=== PATIENT | male | born 1970 ===

== ENCOUNTER 2021-08-01 04:02 | Inpatient (IN) ==
[2021-08-01] MEDS ORDERED: ACETAMINOPHEN 325 MG TABLET PO PRN (06:46)
[2021-08-01] MEDS ORDERED: hydrALAZINE 20 MG/1 ML VIAL IV PRN (06:46)
[2021-08-01] MEDS ORDERED: GLUCAGON 1 MG VIAL IM PRN (06:46)
[2021-08-01] MEDS ORDERED: ONDANSETRON 4 MG/2 ML VIAL IV PRN (06:46)
[2021-08-01] MEDS ORDERED: DEXTROSE 10% 25 GM/250 ML BAG IV PRN (06:46)
[2021-08-01 07:27] LABS: Basophils % 0.2 % (0.0-0.8); Eosinophils # 0.1 10*3/uL (0.0-0.87); Hemoglobin 8.4 GM/DL (14.0-18.0); Immature Granulocytes % 0.6 %; Immature Granulocytes Absolute 0.03 #; Lymphocytes % 18.8 % (21.2-54.2); Mean Corpuscular HGB Conc 32.3 GM/DL (32-36); Mean Corpuscular Volume 95.9 FL (87-102); Mean Platelet Volume 9.2 FL (9.6-12.0); Monocytes % 4.5 % (1.7-12.7); Neutrophils % 73.9 % (38.7-73.9); Platelet Count 267 T/CUMM (130-400); Red Blood Count 2.71 MC/CUMM (3.8-5.5); Red Cell Distribution Width 12.8 % (9.3-17.3); White Blood Count 5.4 T/CUMM (4-12)
[2021-08-01 07:55] LABS: Alanine Aminotransferase 30 U/L (16-61); Albumin 1.1 G/DL (3.4-5.0); Alkaline Phosphatase 118 U/L (45-117); Aspartate Amino Transferase 22 U/L (0-37); Bilirubin,Total < 0.39 MG/DL (0.20-1.00); Blood Urea Nitrogen 38 MG/DL (7-18); Calcium 7.2 MG/DL (8.5-10.1); Carbon Dioxide 19 MMOL/L (21-32); Estimated Glom Filtration Rate 15 ML/MIN; Glucose 100 MG/DL (74-106); HDL Cholesterol 37 MG/DL (40-60); Osmolality,Calculated 307.9 MOS/KG (273-304); Potassium 4.9 MMOL/L (3.5-5.1); Risk Ratio 3.57; Sodium 151 MMOL/L (136-145); Total Protein 4.5 G/DL (6.4-8.2); Triglycerides 126 MG/DL (2-150); VLDL Cholesterol 25.2 MG/DL
[2021-08-01] MEDS: INSULIN REGULAR 100 UNIT/ML SUBCUT SCH ×4 (07:58→22:38)
[2021-08-01] MEDS: PANTOPRAZOLE 40 MG TABLET PO SCH (09:00)
[2021-08-01] MEDS: CHOLECALCIFEROL 1,000 UNIT TABLET PO SCH (10:54)
[2021-08-01] MEDS: AZITHROMYCIN 250 MG TABLET PO SCH (10:54)
[2021-08-01] MEDS: cefTRIAXone 1,000 MG in SODIUM CHLORIDE 0.9% 100 ML IV SCH (10:55)
[2021-08-01] MEDS ORDERED: MAGNESIUM SULF INJ 3 GM in SODIUM CHLORIDE 0.9% 100 ML IV ONE (11:00)
[2021-08-01 11:27] LABS: Folate 6.74 NG/ML (5.38-24.0)
[2021-08-01 11:33] LABS: % Iron Saturation 37.7 % (18-50); Ferritin 463.3 ng/mL (26-388)
[2021-08-01] MEDS: SODIUM BICARB INJ 150 MEQ in DEXTROSE 5% 850 ML IV SCH ×2 (12:38→18:13)
[2021-08-01 13:32] LABS: Bilirubin,Urine Negative (Negative); Blood, Urine Small mg/dL (Negative); Glucose,Urine (UA) >=500 mg/dL (Negative); Hyaline Casts,Urine 11 /LPF (0-3); Ketones,Urine Negative (Negative); Mucus,Urine Occasional /LPF (Occasional); Nitrite,Urine Negative (Negative); Protein,Urine >=500 MG/DL; RBC,Urine 2 /HPF (0-4); Urine Appearance CLEAR (Clear); Urine Color Yellow (Yellow); Urine Specific Gravity 1.013 (1.001-1.035); Urine Urobilinogen < 2.0 EU/DL (<2.0)
[2021-08-01] MEDS: FERROUS SULFATE 325 MG TABLET PO SCH ×2 (16:29→21:45)
[2021-08-01] MEDS: HEPARIN 5,000 UNIT/1 ML VIAL SUBCUT SCH (21:45)
[2021-08-01] MEDS: METOPROLOL TARTRATE 50 MG TABLET PO SCH (21:45)
[2021-08-02] MEDS: SODIUM BICARB INJ 150 MEQ in DEXTROSE 5% 850 ML IV SCH ×3 (01:06→18:04)
[2021-08-02 05:45] LABS: Basophils % 0.2 % (0.0-0.8); Eosinophils # 0.1 10*3/uL (0.0-0.87); Eosinophils % 2.6 % (0.00-10.9); Hematocrit 25.9 VOL% (42.0-52.0); Hemoglobin 8.4 GM/DL (14.0-18.0); Immature Granulocytes % 0.5 %; Immature Granulocytes Absolute 0.02 #; Lymphocytes # 1.1 10*3/uL (1.4-4.0); Lymphocytes % 25.5 % (21.2-54.2); Mean Corpuscular HGB Conc 32.4 GM/DL (32-36); Mean Corpuscular Volume 94.5 FL (87-102); Mean Platelet Volume 9.2 FL (9.6-12.0); Monocytes % 5.9 % (1.7-12.7); Neutrophils % 65.3 % (38.7-73.9); Platelet Count 277 T/CUMM (130-400); Red Blood Count 2.74 MC/CUMM (3.8-5.5); Red Cell Distribution Width 12.7 % (9.3-17.3); White Blood Count 4.3 T/CUMM (4-12)
[2021-08-02 05:59] LABS: Osmolality,Calculated 303.3 MOS/KG (273-304); Potassium 4.3 MMOL/L (3.5-5.1)
[2021-08-02] MEDS: HEPARIN 5,000 UNIT/1 ML VIAL SUBCUT SCH ×2 (09:02→20:45)
[2021-08-02] MEDS: CLOPIDOGREL 75 MG TABLET PO SCH (09:05)
[2021-08-02] MEDS: CHOLECALCIFEROL 1,000 UNIT TABLET PO SCH (09:05)
[2021-08-02] MEDS: ATORVASTATIN 80 MG TABLET PO SCH (09:05)
[2021-08-02] MEDS: ASPIRIN CHEW 81 MG TABLET PO SCH (09:05)
[2021-08-02] MEDS: PANTOPRAZOLE 40 MG TABLET PO SCH (09:05)
[2021-08-02] MEDS: TAMSULOSIN 0.4 MG CAPSULE PO SCH (09:05)
[2021-08-02] MEDS: FERROUS SULFATE 325 MG TABLET PO SCH ×3 (09:05→20:43)
[2021-08-02] MEDS: AZITHROMYCIN 250 MG TABLET PO SCH (09:06)
[2021-08-02] MEDS: METOPROLOL TARTRATE 50 MG TABLET PO SCH ×2 (09:12→20:43)
[2021-08-02] MEDS: amLODIPine 10 MG TABLET PO SCH (09:12)
[2021-08-02] MEDS: INSULIN REGULAR 100 UNIT/ML SUBCUT SCH ×4 (09:48→20:44)
[2021-08-02] MEDS: cefTRIAXone 1,000 MG in SODIUM CHLORIDE 0.9% 100 ML IV SCH (12:14)
[2021-08-03] MEDS: SODIUM BICARB INJ 150 MEQ in DEXTROSE 5% 850 ML IV SCH ×2 (01:46→09:01)
[2021-08-03 07:31] LABS: Alanine Aminotransferase 25 U/L (16-61); Alkaline Phosphatase 101 U/L (45-117); Aspartate Amino Transferase 25 U/L (0-37); Bilirubin,Total < 0.39 MG/DL (0.20-1.00); Blood Urea Nitrogen 32 MG/DL (7-18); Calcium 6.5 MG/DL (8.5-10.1); Carbon Dioxide 28 MMOL/L (21-32); Estimated Glom Filtration Rate 17 ML/MIN; Glucose 124 MG/DL (74-106); Osmolality,Calculated 301.3 MOS/KG (273-304); Potassium 3.8 MMOL/L (3.5-5.1); Sodium 148 MMOL/L (136-145); Total Protein 4.2 G/DL (6.4-8.2)
[2021-08-03] MEDS: CHOLECALCIFEROL 1,000 UNIT TABLET PO SCH (09:00)
[2021-08-03] MEDS: FERROUS SULFATE 325 MG TABLET PO SCH ×3 (09:00→22:09)
[2021-08-03] MEDS: HEPARIN 5,000 UNIT/1 ML VIAL SUBCUT SCH ×2 (09:00→22:09)
[2021-08-03] MEDS: TAMSULOSIN 0.4 MG CAPSULE PO SCH (09:00)
[2021-08-03] MEDS: AZITHROMYCIN 250 MG TABLET PO SCH (09:00)
[2021-08-03] MEDS: ATORVASTATIN 80 MG TABLET PO SCH (09:00)
[2021-08-03] MEDS: ASPIRIN CHEW 81 MG TABLET PO SCH (09:00)
[2021-08-03] MEDS: amLODIPine 10 MG TABLET PO SCH (09:01)
[2021-08-03] MEDS: METOPROLOL TARTRATE 50 MG TABLET PO SCH ×2 (09:01→22:09)
[2021-08-03] MEDS: CLOPIDOGREL 75 MG TABLET PO SCH (09:01)
[2021-08-03] MEDS: PANTOPRAZOLE 40 MG TABLET PO SCH (09:01)
[2021-08-03] MEDS: INSULIN REGULAR 100 UNIT/ML SUBCUT SCH ×4 (09:57→22:19)
[2021-08-03] MEDS: cefTRIAXone 1,000 MG in SODIUM CHLORIDE 0.9% 100 ML IV SCH (12:10)
[2021-08-03] MEDS: SODIUM BICARB INJ 150 MEQ in DEXTROSE 5% 1,000 ML IV SCH (22:19)
[2021-08-04] MEDS: SODIUM BICARB INJ 150 MEQ in DEXTROSE 5% 1,000 ML IV SCH ×3 (03:57→22:40)
[2021-08-04] MEDS: cefTRIAXone 1,000 MG in SODIUM CHLORIDE 0.9% 100 ML IV SCH (11:20)
[2021-08-04] MEDS: HEPARIN 5,000 UNIT/1 ML VIAL SUBCUT SCH ×2 (11:21→22:38)
[2021-08-04] MEDS: ASPIRIN CHEW 81 MG TABLET PO SCH (11:21)
[2021-08-04] MEDS: CHOLECALCIFEROL 1,000 UNIT TABLET PO SCH (11:21)
[2021-08-04] MEDS: CLOPIDOGREL 75 MG TABLET PO SCH (11:21)
[2021-08-04] MEDS: ATORVASTATIN 80 MG TABLET PO SCH (11:22)
[2021-08-04] MEDS: METOPROLOL TARTRATE 50 MG TABLET PO SCH ×2 (11:22→22:38)
[2021-08-04] MEDS: TAMSULOSIN 0.4 MG CAPSULE PO SCH (11:22)
[2021-08-04] MEDS: amLODIPine 10 MG TABLET PO SCH (11:22)
[2021-08-04] MEDS: FERROUS SULFATE 325 MG TABLET PO SCH ×3 (11:22→22:38)
[2021-08-04] MEDS: INSULIN REGULAR 100 UNIT/ML SUBCUT SCH ×3 (11:47→22:39)
[2021-08-04] MEDS: PANTOPRAZOLE 40 MG TABLET PO SCH (12:25)
[2021-08-05 05:58] LABS: Calcium 6.2 MG/DL (8.5-10.1); Osmolality,Calculated 302.3 MOS/KG (273-304); Potassium 3.6 MMOL/L (3.5-5.1)
[2021-08-05] MEDS: INSULIN REGULAR 100 UNIT/ML SUBCUT SCH ×2 (10:57→13:26)
[2021-08-05] MEDS: cefTRIAXone 1,000 MG in SODIUM CHLORIDE 0.9% 100 ML IV SCH (10:57)
[2021-08-05] MEDS: HEPARIN 5,000 UNIT/1 ML VIAL SUBCUT SCH (11:04)
[2021-08-05] MEDS: amLODIPine 10 MG TABLET PO SCH (11:05)
[2021-08-05] MEDS: PANTOPRAZOLE 40 MG TABLET PO SCH (11:05)
[2021-08-05] MEDS: ASPIRIN CHEW 81 MG TABLET PO SCH (11:05)
[2021-08-05] MEDS: ATORVASTATIN 80 MG TABLET PO SCH (11:05)
[2021-08-05] MEDS: CLOPIDOGREL 75 MG TABLET PO SCH (11:05)
[2021-08-05] MEDS: METOPROLOL TARTRATE 50 MG TABLET PO SCH (11:05)
[2021-08-05] MEDS: TAMSULOSIN 0.4 MG CAPSULE PO SCH (11:05)
[2021-08-05] MEDS: FERROUS SULFATE 325 MG TABLET PO SCH ×2 (11:05→16:28)
[2021-08-05] MEDS: CHOLECALCIFEROL 1,000 UNIT TABLET PO SCH (11:06)
[2021-08-05 17:13] VITALS: BP 120/60
[2021-08-06] MEDS ORDERED: IRON (CARBONYL)/VIT C/B12/FA TABLET PO SCH (09:00)
== END 2021-08-05 16:55 | DRG 64 ==
LOC: N.5E 05:30 → SUATTDRO 05:30
PROVIDERS: ADMIT Internal Medicine; ATTEND Internal Medicine

== ENCOUNTER 2022-04-04 14:46 | Observation (INO) ==
[2022-04-04] MEDS ORDERED: GLUCAGON 1 MG VIAL IM PRN ×2 (18:22)
[2022-04-04] MEDS ORDERED: DEXTROSE 50% 25 GM/50 ML VIAL IV PRN (18:22)
[2022-04-04] MEDS ORDERED: DEXTROSE 10% 250 ML BAG IV PRN (18:22)
[2022-04-04] MEDS ORDERED: ACETAMINOPHEN 325 MG TABLET PO PRN (18:22)
[2022-04-04] MEDS ORDERED: ONDANSETRON 4 MG/2 ML VIAL IV PRN (18:22)
[2022-04-04] MEDS ORDERED: SODIUM CHLORIDE 0.9% 1,000 ML IV PRN (18:25)
[2022-04-04] MEDS ORDERED: INFLUENZA VIRUS VACCINE 0.5 ML SYRINGE IM ONE (20:02)
[2022-04-04] MEDS: INSULIN LISPRO 100 UNIT/ML SUBCUT SCH (20:19)
[2022-04-05] MEDS ORDERED: FUROSEMIDE 20 MG/2 ML VIAL IV ONE (00:04)
[2022-04-05 06:34] LABS: Basophils % 0.5 % (0.0-0.8); Eosinophils # 0.1 10*3/uL (0.0-0.87); Eosinophils % 3.3 % (0.00-10.9); Hematocrit 22.3 VOL% (42.0-52.0); Hemoglobin 7.2 GM/DL (14.0-18.0); Immature Granulocytes % 0.5 %; Immature Granulocytes Absolute 0.02 #; Lymphocytes # 0.8 10*3/uL (1.4-4.0); Lymphocytes % 19.9 % (21.2-54.2); Mean Corpuscular HGB Conc 32.3 GM/DL (32-36); Mean Corpuscular Volume 97.4 FL (87-102); Mean Platelet Volume 9.9 FL (9.6-12.0); Monocytes # 0.2 10*3/uL (0.11-0.8); Monocytes % 5.1 % (1.7-12.7); Neutrophils % 70.7 % (38.7-73.9); Platelet Count 144 T/CUMM (130-400); Red Blood Count 2.29 MC/CUMM (3.8-5.5); Red Cell Distribution Width 16.2 % (9.3-17.3)
[2022-04-05 07:01] LABS: Calcium 6.4 MG/DL (8.5-10.1); Osmolality,Calculated 333.9 MOS/KG (273-304); Potassium 3.5 MMOL/L (3.5-5.1)
[2022-04-05] MEDS: INSULIN LISPRO 100 UNIT/ML SUBCUT SCH ×4 (08:32→20:59)
[2022-04-05 10:18] LABS: Basophils % 0.7 % (0.0-0.8); Eosinophils # 0.1 10*3/uL (0.0-0.87); Eosinophils % 2.9 % (0.00-10.9); Hematocrit 22.2 VOL% (42.0-52.0); Hemoglobin 7.4 GM/DL (14.0-18.0); Immature Granulocytes % 0.2 %; Immature Granulocytes Absolute 0.01 #; Lymphocytes # 1.1 10*3/uL (1.4-4.0); Lymphocytes % 23.6 % (21.2-54.2); Mean Corpuscular HGB Conc 33.3 GM/DL (32-36); Mean Corpuscular Volume 98.7 FL (87-102); Mean Platelet Volume 9.2 FL (9.6-12.0); Monocytes # 0.3 10*3/uL (0.11-0.8); Monocytes % 6.2 % (1.7-12.7); Neutrophils % 66.4 % (38.7-73.9); Platelet Count 132 T/CUMM (130-400); Red Blood Count 2.25 MC/CUMM (3.8-5.5); White Blood Count 4.5 T/CUMM (4-12)
[2022-04-05 10:40] LABS: Alanine Aminotransferase 97 U/L (16-61); Alkaline Phosphatase 127 U/L (45-117); Aspartate Amino Transferase 52 U/L (0-37); Bilirubin,Total < 0.39 MG/DL (0.20-1.00); Blood Urea Nitrogen 113 MG/DL (7-18); Calcium 6.4 MG/DL (8.5-10.1); Carbon Dioxide 21 MMOL/L (21-32); Chloride 118 MMOL/L (98-107); Glucose 157 MG/DL (74-106); Potassium 3.4 MMOL/L (3.5-5.1); Sodium 150 MMOL/L (136-145); Total Protein 4.7 G/DL (6.4-8.2)
[2022-04-05] MEDS ORDERED: SODIUM CHLORIDE 0.9% 1,000 ML IV PRN (11:31)
[2022-04-05] MEDS ORDERED: FUROSEMIDE 40 MG/4 ML VIAL IV ONE (13:04)
[2022-04-05 17:32] LABS: Hematocrit 25.4 VOL% (42.0-52.0); Hemoglobin 8.3 GM/DL (14.0-18.0)
[2022-04-06 05:27] LABS: Basophils % 0.2 % (0.0-0.8); Eosinophils # 0.1 10*3/uL (0.0-0.87); Eosinophils % 2.8 % (0.00-10.9); Hematocrit 26.1 VOL% (42.0-52.0); Hemoglobin 8.4 GM/DL (14.0-18.0); Immature Granulocytes % 0.2 %; Immature Granulocytes Absolute 0.01 #; Lymphocytes # 1.2 10*3/uL (1.4-4.0); Lymphocytes % 25.4 % (21.2-54.2); Mean Corpuscular HGB Conc 32.2 GM/DL (32-36); Mean Corpuscular Volume 94.9 FL (87-102); Mean Platelet Volume 9.7 FL (9.6-12.0); Monocytes # 0.3 10*3/uL (0.11-0.8); Monocytes % 5.4 % (1.7-12.7); Platelet Count 142 T/CUMM (130-400); Red Blood Count 2.75 MC/CUMM (3.8-5.5); White Blood Count 4.6 T/CUMM (4-12)
[2022-04-06 05:47] LABS: Calcium 6.5 MG/DL (8.5-10.1); Osmolality,Calculated 330.1 MOS/KG (273-304); Potassium 3.6 MMOL/L (3.5-5.1)
[2022-04-06 11:40] VITALS: BP 163/80
== END 2022-04-06 14:39 | disposition home or self-care (01) ==
LOC: N.2W → SUATTDRO 16:33 → N.5E 04-05 20:37
PROVIDERS: ADMIT Internal Medicine; ATTEND Internal Medicine

== ENCOUNTER 2022-06-04 07:03 | Inpatient (IN) ==
[~2022-06-04 07:03] MED LIST: SODIUM CHLORIDE 0.9% 250 ML IV SCH
[2022-06-04 08:02] LABS: Basophils % 0.4 % (0.0-0.8); Eosinophils # 0.2 10*3/uL (0.0-0.87); Eosinophils % 3.8 % (0.00-10.9); Hematocrit 20.8 VOL% (42.0-52.0); Immature Granulocytes % 0.9 %; Immature Granulocytes Absolute 0.04 #; Lymphocytes # 0.7 10*3/uL (1.4-4.0); Lymphocytes % 14.5 % (21.2-54.2); Mean Corpuscular HGB Conc 30.8 GM/DL (32-36); Mean Platelet Volume 9.2 FL (9.6-12.0); Monocytes # 0.3 10*3/uL (0.11-0.8); Monocytes % 5.7 % (1.7-12.7); Neutrophils % 74.7 % (38.7-73.9); Platelet Count 201 T/CUMM (130-400); Red Blood Count 2.06 MC/CUMM (3.8-5.5); Red Cell Distribution Width 17.8 % (9.3-17.3); White Blood Count 4.7 T/CUMM (4-12)
[2022-06-04 08:06] LABS: Hemoglobin 6.4 GM/DL (14.0-18.0)
[2022-06-04 08:22] LABS: Osmolality,Calculated 343.5 MOS/KG (273-304); Potassium 5.5 MMOL/L (3.5-5.1)
[2022-06-04 08:27] LABS: Calcium 5.6 MG/DL (8.5-10.1)
[2022-06-04] MEDS ORDERED: MIDAZOLAM 2 MG/2 ML VIAL ONE (09:22)
[2022-06-04] MEDS ORDERED: BUPIVACAINE MPF 0.25% 10 ML VIAL ONE (09:44)
[2022-06-04] MEDS ORDERED: LIDOCAINE 1% 5 ML VIAL ONE (09:44)
[2022-06-04] MEDS ORDERED: HEPARIN 5,000 UNIT/1 ML VIAL ONE (09:44)
[2022-06-04] MEDS ORDERED: ZALEPLON 5 MG CAPSULE PO PRN (10:38)
[2022-06-04] MEDS ORDERED: ONDANSETRON 4 MG/2 ML VIAL IV PRN ×2 (10:38→10:44)
[2022-06-04] MEDS ORDERED: fentaNYL 100 MCG/2 ML VIAL ONE (10:41)
[2022-06-04] MEDS ORDERED: ACETAMINOPHEN 325 MG TABLET PO PRN (10:44)
[2022-06-04] MEDS ORDERED: SODIUM CHLORIDE 0.9% 1,000 ML IV PRN (10:48)
[2022-06-04] MEDS ORDERED: PHENYLEPHRINE 1 MG/10 ML SYRINGE IV ONE (10:54)
[2022-06-04] MEDS ORDERED: EPOETIN ALFA-EPBX 4,000 UNIT/ML VIAL IV PRN (12:37)
[2022-06-04] MEDS ORDERED: GLUCAGON 1 MG VIAL IM PRN (12:39)
[2022-06-04] MEDS: ACETAMINOPHEN 325 MG TABLET PO PRN (13:22)
[2022-06-04] MEDS ORDERED: HEPARIN 10,000 UNIT/10 ML VIAL IV PRN (14:59)
[2022-06-04 16:06] LABS: % Iron Saturation 83.6 % (18-50); Ferritin 1882.6 ng/mL (26-388)
[2022-06-04] MEDS ORDERED: DEXTROSE 10% 250 ML BAG IV PRN (16:25)
[2022-06-04 16:52] LABS: Albumin 1.6 G/DL (3.4-5.0); Phosphorous 8.1 MG/DL (2.5-4.9)
[2022-06-04] MEDS: INSULIN LISPRO 100 UNIT/ML SUBCUT SCH ×2 (16:57→20:12)
[2022-06-04] MEDS: FERROUS SULFATE 300 MG/5 ML UDCUP PO SCH ×2 (16:57→21:06)
[2022-06-04 17:56] LABS: Hepatitis B Core IgM Quant 0.06 Index; Hepatitis B Surface Ag Quant < 0.10 Index; Hepatitis B Surface Ag Result Non-Reactive (NonReactive); Hepatitis C Virus Ab Quant < 0.02 Index; Hepatitis C Virus Ab Result Non-Reactive (NonReactive)
[2022-06-04] MEDS: ATORVASTATIN 40 MG TABLET PO SCH (21:06)
[2022-06-04] MEDS: TAMSULOSIN 0.4 MG CAPSULE PO SCH (21:06)
[2022-06-04 23:35] LABS: Hematocrit 21.9 VOL% (42.0-52.0); Hemoglobin 6.9 GM/DL (14.0-18.0)
[2022-06-05 05:17] LABS: Basophils % 0.5 % (0.0-0.8); Eosinophils # 0.2 10*3/uL (0.0-0.87); Eosinophils % 3.7 % (0.00-10.9); Hematocrit 20.4 VOL% (42.0-52.0); Hemoglobin 6.7 GM/DL (14.0-18.0); Immature Granulocytes % 0.5 %; Immature Granulocytes Absolute 0.02 #; Lymphocytes # 0.6 10*3/uL (1.4-4.0); Lymphocytes % 13.4 % (21.2-54.2); Mean Corpuscular HGB Conc 32.8 GM/DL (32-36); Mean Corpuscular Volume 96.2 FL (87-102); Mean Platelet Volume 9.6 FL (9.6-12.0); Monocytes # 0.3 10*3/uL (0.11-0.8); Monocytes % 7.8 % (1.7-12.7); Neutrophils % 74.1 % (38.7-73.9); Platelet Count 171 T/CUMM (130-400); Red Blood Count 2.12 MC/CUMM (3.8-5.5); Red Cell Distribution Width 18.8 % (9.3-17.3); White Blood Count 4.3 T/CUMM (4-12)
[2022-06-05 05:50] LABS: Alanine Aminotransferase 232 U/L (16-61); Albumin 1.5 G/DL (3.4-5.0); Alkaline Phosphatase 170 U/L (45-117); Aspartate Amino Transferase 236 U/L (0-37); Bilirubin,Total < 0.39 MG/DL (0.20-1.00); Blood Urea Nitrogen 167 MG/DL (7-18); Calcium 5.9 MG/DL (8.5-10.1); Carbon Dioxide 20 MMOL/L (21-32); Chloride 108 MMOL/L (98-107); Cholesterol 71 MG/DL (50-200); Glucose 97 MG/DL (74-106); HDL Cholesterol 21 MG/DL (40-60); Osmolality,Calculated 331.5 MOS/KG (273-304); Potassium 4.7 MMOL/L (3.5-5.1); Risk Ratio 3.38; Sodium 139 MMOL/L (136-145); Total Protein 4.2 G/DL (6.4-8.2); Triglycerides 105 MG/DL (2-150)
[2022-06-05] MEDS ORDERED: LEVOTHYROXINE 50 MCG TABLET PO SCH (06:30)
[2022-06-05] MEDS ORDERED: SODIUM CHLORIDE 0.9% 1,000 ML IV PRN ×2 (06:30→09:29)
[2022-06-05] MEDS: INSULIN LISPRO 100 UNIT/ML SUBCUT SCH ×3 (07:30→16:04)
[2022-06-05] MEDS ORDERED: ERGOCALCIFEROL 50,000 UNIT CAPSULE PO SCH (09:00)
[2022-06-05] MEDS: FERROUS SULFATE 300 MG/5 ML UDCUP PO SCH ×3 (13:39→21:17)
[2022-06-05] MEDS: TAMSULOSIN 0.4 MG CAPSULE PO SCH ×2 (13:45→21:17)
[2022-06-05] MEDS: ACETAMINOPHEN 325 MG TABLET PO PRN (13:46)
[2022-06-05] MEDS: ATORVASTATIN 40 MG TABLET PO SCH (21:18)
[2022-06-06] MEDS: INSULIN LISPRO 100 UNIT/ML SUBCUT SCH ×5 (01:19→21:20)
[2022-06-06] MEDS: LEVOTHYROXINE 75 MCG TABLET PO SCH (05:42)
[2022-06-06 05:49] LABS: Basophils % 0.4 % (0.0-0.8); Eosinophils # 0.2 10*3/uL (0.0-0.87); Hematocrit 28.5 VOL% (42.0-52.0); Hemoglobin 9.5 GM/DL (14.0-18.0); Immature Granulocytes % 0.6 %; Immature Granulocytes Absolute 0.03 #; Lymphocytes # 0.7 10*3/uL (1.4-4.0); Lymphocytes % 12.7 % (21.2-54.2); Mean Corpuscular HGB Conc 33.3 GM/DL (32-36); Mean Corpuscular Volume 93.1 FL (87-102); Mean Platelet Volume 9.4 FL (9.6-12.0); Monocytes # 0.6 10*3/uL (0.11-0.8); Monocytes % 10.1 % (1.7-12.7); Neutrophils % 72.2 % (38.7-73.9); Platelet Count 146 T/CUMM (130-400); Red Blood Count 3.06 MC/CUMM (3.8-5.5); Red Cell Distribution Width 18.1 % (9.3-17.3); White Blood Count 5.5 T/CUMM (4-12)
[2022-06-06 06:20] LABS: Albumin 1.6 G/DL (3.4-5.0); Bilirubin,Total 0.5 MG/DL (0.20-1.00); Calcium 6.7 MG/DL (8.5-10.1); Osmolality,Calculated 312.1 MOS/KG (273-304); Total Protein 4.3 G/DL (6.4-8.2)
[2022-06-06] MEDS: FERROUS SULFATE 300 MG/5 ML UDCUP PO SCH ×3 (08:59→20:28)
[2022-06-06] MEDS: TAMSULOSIN 0.4 MG CAPSULE PO SCH ×2 (09:00→20:28)
[2022-06-06] MEDS: ATORVASTATIN 40 MG TABLET PO SCH (20:28)
[2022-06-07 05:23] LABS: Basophils % 0.4 % (0.0-0.8); Eosinophils # 0.2 10*3/uL (0.0-0.87); Eosinophils % 3.9 % (0.00-10.9); Hematocrit 28.1 VOL% (42.0-52.0); Hemoglobin 9.2 GM/DL (14.0-18.0); Immature Granulocytes % 0.6 %; Immature Granulocytes Absolute 0.03 #; Lymphocytes # 0.7 10*3/uL (1.4-4.0); Lymphocytes % 13.8 % (21.2-54.2); Mean Corpuscular HGB Conc 32.7 GM/DL (32-36); Mean Platelet Volume 9.6 FL (9.6-12.0); Monocytes # 0.5 10*3/uL (0.11-0.8); Monocytes % 9.9 % (1.7-12.7); Neutrophils % 71.4 % (38.7-73.9); Platelet Count 140 T/CUMM (130-400); Red Blood Count 2.99 MC/CUMM (3.8-5.5); Red Cell Distribution Width 17.6 % (9.3-17.3); White Blood Count 5.4 T/CUMM (4-12)
[2022-06-07 05:42] LABS: Calcium 6.9 MG/DL (8.5-10.1); Osmolality,Calculated 303.8 MOS/KG (273-304); Potassium 3.8 MMOL/L (3.5-5.1)
[2022-06-07] MEDS: LEVOTHYROXINE 75 MCG TABLET PO SCH (06:05)
[2022-06-07] MEDS: INSULIN LISPRO 100 UNIT/ML SUBCUT SCH ×4 (08:34→20:46)
[2022-06-07] MEDS: FERROUS SULFATE 300 MG/5 ML UDCUP PO SCH ×3 (08:34→20:45)
[2022-06-07] MEDS: TAMSULOSIN 0.4 MG CAPSULE PO SCH ×2 (08:34→20:46)
[2022-06-07] MEDS: ATORVASTATIN 40 MG TABLET PO SCH (20:46)
[2022-06-08] MEDS ORDERED: diphenhydrAMINE CAP 25 MG CAPSULE PO PRN (02:56)
[2022-06-08] MEDS: LEVOTHYROXINE 75 MCG TABLET PO SCH (05:30)
[2022-06-08] MEDS: FERROUS SULFATE 300 MG/5 ML UDCUP PO SCH ×3 (08:23→20:43)
[2022-06-08] MEDS: TAMSULOSIN 0.4 MG CAPSULE PO SCH ×2 (08:23→20:43)
[2022-06-08] MEDS: INSULIN LISPRO 100 UNIT/ML SUBCUT SCH ×4 (08:47→20:43)
[2022-06-08] MEDS: ATORVASTATIN 40 MG TABLET PO SCH (20:43)
[2022-06-09 06:13] LABS: Basophils % 0.3 % (0.0-0.8); Eosinophils # 0.3 10*3/uL (0.0-0.87); Eosinophils % 4.7 % (0.00-10.9); Hematocrit 28.2 VOL% (42.0-52.0); Hemoglobin 9.2 GM/DL (14.0-18.0); Immature Granulocytes % 0.7 %; Immature Granulocytes Absolute 0.05 #; Lymphocytes # 0.9 10*3/uL (1.4-4.0); Lymphocytes % 12.4 % (21.2-54.2); Mean Corpuscular HGB Conc 32.6 GM/DL (32-36); Mean Corpuscular Volume 95.6 FL (87-102); Mean Platelet Volume 9.5 FL (9.6-12.0); Monocytes # 0.5 10*3/uL (0.11-0.8); Neutrophils % 74.9 % (38.7-73.9); Platelet Count 154 T/CUMM (130-400); Red Blood Count 2.95 MC/CUMM (3.8-5.5); Red Cell Distribution Width 17.3 % (9.3-17.3); White Blood Count 6.8 T/CUMM (4-12)
[2022-06-09 06:38] LABS: Calcium 6.9 MG/DL (8.5-10.1); Osmolality,Calculated 310.8 MOS/KG (273-304)
[2022-06-09] MEDS: LEVOTHYROXINE 75 MCG TABLET PO SCH (07:20)
[2022-06-09] MEDS: INSULIN LISPRO 100 UNIT/ML SUBCUT SCH ×3 (07:53→15:51)
[2022-06-09] MEDS: FERROUS SULFATE 300 MG/5 ML UDCUP PO SCH ×2 (08:43→15:57)
[2022-06-09] MEDS: TAMSULOSIN 0.4 MG CAPSULE PO SCH (08:43)
[2022-06-09 10:52] LABS: Bilirubin,Urine Small mg/dL (Negative); Blood, Urine Large mg/dL (Negative); Glucose,Urine (UA) 100 mg/dL (Negative); Ketones,Urine Trace mg/dL (Negative); Nitrite,Urine Negative (Negative); Protein,Urine >=300 mg/dL (Negative); Urine Appearance Slightly Hazy (Clear); Urine Color Yellow (Yellow); Urine Specific Gravity 1.025 (1.001-1.035); Urine Urobilinogen 0.2 eU/dL (<2.0); Urine pH 5.5 (4.5-8.0)
[2022-06-09 10:53] LABS: Amorphous Crystals,Urine Few /HPF (Few); Bacteria,Urine Few /HPF (Few)
[2022-06-09] MEDS ORDERED: BISACODYL 10 MG SUPP RECTAL ONE (11:23)
[2022-06-09 11:50] VITALS: BP 134/85
[2022-06-09] MEDS: ACETAMINOPHEN 325 MG TABLET PO PRN (15:57)
== END 2022-06-09 16:08 | DRG 673 ==
LOC: N.OR 07:03 → N.SDSINP 07:04 → SUATTDRO 10:36 → N.3E 16:22
PROVIDERS: ADMIT Surgery; ATTEND Internal Medicine